=== PATIENT | male | born 1975 | race Caucasian/White ===

== ENCOUNTER 2021-04-07 07:27 | Emergency (ER) | payer OTHER ==
[2021-04-07 07:50] LABS: BASOPHIL 0.5 % (0-2); EOSINOPHIL 1.5 % (0-5); HGB 15.4 g/dl (13.2-18.0); LYMPHOCYTE 25.8 % (15-48); MCH 31.8 pg (25.0-31.0); MCHC 33.5 g/dL (32.0-36.0); MPV 9.7 fL (6.0-9.5); NEUTROPHIL 63.8 % (41-80); NRBC 0; PLT 177 K/uL (150-400); RBC 4.84 M/uL (4.70-6.00); WBC 12.1 K/uL (4.0-10.5)
[2021-04-07 08:19] LABS: ALBUMIN 3.5 g/dL (3.4-5.0); BILIRUBIN - TOTAL 0.3 mg/dL (0.2-1.0); BUN/CREAT RATIO (CALC) 12.1 RATIO; CREATININE 0.91 mg/dL (0.67-1.17); GLOBULIN (CALCULATION) 3.4 g/dL; INR 1.03 (0.9-1.2); POTASSIUM 4.1 mmol/L (3.5-5.1); PROTHROMBIN TIME 12.9 SECONDS (11.8-13.4); TOTAL PROTEIN 6.9 g/dL (6.4-8.2)
== END 2021-04-07 13:28 | disposition other institution (70) ==
LOC: FER 07:27
PROVIDERS: Emergency Medicine Emergency Medical Services
DX: I20.0 Unstable angina (principal); I10 Essential (primary) hypertension; I25.2 Old myocardial infarction; E11.9 Type 2 diabetes mellitus without complications; F17.210 Nicotine dependence, cigarettes, uncomplicated; Z95.5 Presence of coronary angioplasty implant and graft
CPT/HCPCS: 36415; 71045; 80053; 84484; 85025; 85610; 85730; 93005; J1170; J1644; J2270; J2405